=== PATIENT | female | born 1965 | race Caucasian/White ===

== ENCOUNTER → 2016-06-09 | Outpatient (CLI) | payer SELFPAY ==
--- NOTE | 2016-06-09 15:50 | CT ---
HISTORY: Screening Cardiac calcium scoring. Technique: Multiple axial images of the chest were obtained on a [address] from the aortic arch to the base of the heart with noncontrast prospective gating. AEC was utilized. Findings: A total calcium score of 0 is observed. The score results in very low, generally less than 5%, like lihood of coronary events given the age and sex matched cohort analysis. The lungs are clear. Mild thoracic spondylosis is noted. There is dense lateral left breast parenchy ma for which correlation with recent or follow up mammography is recommended. No previous mammograp hy is identified within our system. Findings could reflect normal dense glandular parenchyma, but an underlying mass is not excluded without mammographic correlation. IMPRESSION: No identifiable plaque. See above discussion for incidentals. Reported By:
== END ==
LOC: RAD 14:23
PROVIDERS: ATTEND Internal Medicine
DX: Z13.6 Encounter for screening for cardiovascular disorders (principal)